=== PATIENT | male | born 1965 | race African-American/Black ===

== ENCOUNTER 2017-03-28 10:16 | Day surgery (SDC) | payer OTHER ==
[~2017-03-28] VITALS: Ht 167.6 cm; Wt 74.8 kg
[~2017-03-28 10:16] MED LIST: APRESOLINE50 MG PO; CALCIUM-MAGNES1 EA10 PO; CALPHRON667 MG PO; CATAPRES0.1 MG PO; CO Q-1050 MG PO; COREG3.125 M1 PO; EFFEXOR75 MG PO; FISH OIL 1,0001 EAC7 PO; GLUCOSAMINE-CH1 EA47 PO; IRON325 M1 PO; ISOSORBIDE DINI30 MG PO; LO-DOSE ASPIRIN81 M1 PO; LORTAB 5-325 M1 EACH PO; SUPER B COMPLE1 EAC2 PO; VITAMIN B-122500 MCG SL; VITAMIN C1000 MG PO; VITAMIN D31000 UNI2 PO
[2017-03-28 10:51] LABS: POINT-OF-CARE METER ID UU14174212
[2017-03-28 10:54] LABS: MCH 33.4 PG (29.0-34.0); MCHC 32.4 G/DL (30.0-36.0); MCV 103.1 FL (86-99); MEAN PLAT.VOLUME 9.6 uM^3 (9.0-12.4); PLATELET COUNT 125 K/uL (156-360); RBC DIS.WIDTH-CV 14.6 % (11.8-14.6); WHITE BLOOD COUNT 4.3 K/uL (4.1-10.2)
[2017-03-28 11:13] LABS: ANION GAP 9 MEQ/L (2-14); CHLORIDE 97 MEQ/L (99-109); POTASSIUM 5.3 MEQ/L (3.7-5.4); SAMPLE HEMOLYSIS CHECK 0; SAMPLE ICTERIC CHECK 0; SAMPLE LIPEMIA CHECK 0; SODIUM 139 MEQ/L (136-147)
[2017-03-28 11:16] VITALS: BP 146/83
[2017-03-28 11:19] LABS: GFR ESTIMATE (CALCULATED) 11 mL/min/; GLUCOSE 84 mg/dL (70-99); UREA NITROGEN (BUN) 48 mg/dL (9-23)
[2017-03-28 12:07] LABS: METH RESISTANT S AUREUS PCR NEGATIVE (NEGATIVE)
[2017-03-28 12:13] LABS: PROBE CHECK PASS; SPECIMEN PROCESSING CONTROL PASS
[2017-03-28 15:20] VITALS: BP 176/84
[2017-03-28 16:20] VITALS: BP 170/81
== END 2017-03-28 16:20 | disposition home or self-care (01) ==
LOC: SDC 10:16
PROVIDERS: Surgery
PROC: 3E03317 Introduction of Other Thrombolytic into Peripheral Vein, Percutaneous Approach (ICD-10-PCS; principal; 2017-03-28)
PROC: B51W1ZZ Fluoroscopy of Dialysis Shunt/Fistula using Low Osmolar Contrast (ICD-10-PCS; principal; 2017-03-28)
PROC: 05HY33Z Insertion of Infusion Device into Upper Vein, Percutaneous Approach (ICD-10-PCS; principal; 2017-03-28)
PROC: 05WY07Z Revision of Autologous Tissue Substitute in Upper Vein, Open Approach (ICD-10-PCS; principal; 2017-03-28)
DX: T82.41XA Breakdown (mechanical) of vascular dialysis catheter, initial encounter (principal); I13.0 Hypertensive heart and chronic kidney disease with heart failure and stage 1 through stage 4 chronic kidney disease, or unspecified chronic kidney disease; I50.9 Heart failure, unspecified; N18.6 End stage renal disease; Z99.2 Dependence on renal dialysis; I27.20 Pulmonary hypertension, unspecified; I34.0 Nonrheumatic mitral (valve) insufficiency
CPT/HCPCS: 80048; 82948; 85027; 87641; J0690; J1644; J2405; J2720; J3010